=== PATIENT | female | born 1980 | race African-American/Black ===

== ENCOUNTER → 2017-01-23 | Outpatient (CLI) | payer MEDICARE ==
[~2017-01-23] MED LIST: BENTYL 20MG20 MG/TAB PO; CEPHALEXIN500 M1 PO; FROVA PO; HYDROCODONE/APAP; LAMICTAL 25MG T25 MG PO; LOMOTIL 0.025 M1 TAB PO; NO HOME MEDICATIONS; NORCO 325 MG-51 TAB PO; PERCOCET 325 MG1 TA2 PO; PHENERGAN 25 TA25 MG PO; PHENTERMINE15 MG PO; TEGRETOL100 MG PO; ZOLOFT25 MG PO
== END ==
LOC: BHSO 13:51
DX: F31.74 Bipolar disorder, in full remission, most recent episode manic (principal)

== ENCOUNTER → 2017-10-09 | Outpatient (CLI) | payer MEDICARE | LOC: BHSO 10:39 | DX: F31.73 Bipolar disorder, in partial remission, most recent episode manic (principal) | CPT/HCPCS: G0463 ==

== ENCOUNTER → 2017-11-28 | Outpatient (CLI) | payer MEDICARE | LOC: BHSO 14:20 | DX: F31.73 Bipolar disorder, in partial remission, most recent episode manic (principal) | CPT/HCPCS: G0463 ==

== ENCOUNTER → 2018-02-26 | Outpatient (CLI) | payer MEDICARE | LOC: BHSO 10:42 | DX: F31.31 Bipolar disorder, current episode depressed, mild (principal) | CPT/HCPCS: G0463 ==

== ENCOUNTER → 2018-04-13 | Outpatient (CLI) | payer MEDICARE | LOC: BHSO 09:32 | DX: F31.31 Bipolar disorder, current episode depressed, mild (principal) ==

== ENCOUNTER → 2018-09-08 | Outpatient (CLI) | payer MEDICARE ==
[~2018-09-08] VITALS: Ht 165.1 cm; Wt 82.0 kg
[2018-09-08 07:38] VITALS: BP 127/80; PULSE 92
[2018-09-08 08:20] VITALS: BP 118/84; PULSE 82
== END ==
LOC: COL.RAD 07:00
DX: M51.26 Other intervertebral disc displacement, lumbar region (principal)
CPT/HCPCS: J3301

== ENCOUNTER → 2018-09-24 | Outpatient (CLI) | payer MEDICARE ==
[~2018-09-24] VITALS: Ht 165.1 cm; Wt 80.2 kg
[~2018-09-24] MED LIST changes: +MULTI VITAMINS1 TAB PO
[2018-09-24 09:22] VITALS: BP 138/80; PULSE 89
[2018-09-24 09:55] VITALS: BP 124/65; PULSE 81
== END ==
LOC: COL.RAD 09:00
DX: M51.26 Other intervertebral disc displacement, lumbar region (principal)
CPT/HCPCS: J3301

== ENCOUNTER → 2018-11-17 | Outpatient (CLI) | payer MEDICARE | LOC: BHSO 14:35 | DX: F31.75 Bipolar disorder, in partial remission, most recent episode depressed (principal) | CPT/HCPCS: G0463 ==

== ENCOUNTER → 2019-01-12 | Outpatient (CLI) | payer MEDICARE | LOC: BHSO 14:00 | DX: F31.77 Bipolar disorder, in partial remission, most recent episode mixed (principal) | CPT/HCPCS: G0463 ==

== ENCOUNTER 2019-02-24 11:29 | Emergency (ER) | payer MEDICARE ==
[~2019-02-24] VITALS: Ht 165.1 cm; Wt 76.4 kg
[2019-02-24 11:43] VITALS: TEMP 98.6
[2019-02-24 12:22] LABS: BASO % 0.5 % (0.0-2.0); EOS % 0.6 % (0-4.0); GRAN # 4.4 (1.4-6.5); GRAN % 67.7 % (42.2-75.2); HEMATOCRIT 41.7 % (37.0-47.0); HEMOGLOBIN 13.3 g/dl (12.5-16.0); LYMPH # 1.5 (1.2-3.4); LYMPH % 23.3 % (20.0-51.0); MEAN CELL VOLUME 92 fl (80.0-100.0); MEAN CORPUSCULAR HEMOGLOBIN 29 pg (27.0-31.0); MEAN CORPUSCULAR HGB CONC 32 g/dl (33.0-37.0); MEAN PLATELET VOLUME 9.7 fl (7.4-10.4); MONO # 0.5 (0.1-0.6); MONO % 7.6 % (1.7-9.3); PLATELET COUNT 293 K/mm3 (130-400); RED BLOOD COUNT 4.53 M/mm3 (4.10-5.30); REDCELL DISTRIBUTION WIDTH-CV 13.2 % (11.5-14.5)
[2019-02-24 12:25] LABS: ALANINE AMINOTRANSFERASE < 6 U/L (9-52); ALBUMIN 4.4 gm/dL (3.5-5.0); ALKALINE PHOSPHATASE 42 U/L (50-136); ANION GAP 12 mmol/L (7-16); AST,SGOT 40 U/L (15-37); BILIRUBIN,TOTAL 0.6 mg/dL (0.0-1.0); BLOOD UREA NITROGEN 16 mg/dL (7-17); CALCIUM 9.7 mg/dL (8.4-10.2); CARBON DIOXIDE 22 mmol/L (22-30); CHLORIDE 106 mmol/L (98-107); CREATININE, serum 0.87 (0.52-1.25); GLUCOSE 96 mg/dL (74-106); LIPASE 103 U/L (23-300); POTASSIUM 3.9 mmol/L (3.4-5.0); SODIUM 140 mmol/L (137-145); TOTAL PROTEIN 7.6 gm/dL (6.4-8.2)
[2019-02-24 15:02] LABS: COLLECTION METHOD CLEAN CATCH
[2019-02-24] MEDS ORDERED: PROTONIX 40MG T40 MG PO (15:14)
[2019-02-24] MEDS ORDERED: ZOFRAN 4MG T4 MG/TAB PO (15:18)
[2019-02-24 15:21] LABS: MUCOUS Present /lpf; PH 5 (5-8); SQUAMOUS EPITHELIAL 0-2 /hpf; URINE APPEARANCE Clear; URINE BACTERIA None Seen /hpf; URINE BILIRUBIN Negative (NEGATIVE); URINE BLOOD Negative (NEGATIVE); URINE COLOR Yellow; URINE GLUCOSE Negative (NEGATIVE); URINE KETONE Negative (NEGATIVE); URINE LEUKOCYTE ESTERASE Negative (NEGATIVE); URINE NITRATE Negative (NEGATIVE); URINE PROTEIN(semi-quant) Negative (NEGATIVE); URINE RBC 0-2 /hpf; URINE UROBILINOGEN Negative (NEGATIVE); URINE WBC 0-2 /hpf
[2019-02-24 15:40] VITALS: BP 121/65; PULSE 82
== END 2019-02-24 15:41 | disposition home or self-care (01) ==
LOC: COL.ER 11:29
PROVIDERS: Nurse Practitioner Primary Care
DX: K29.70 Gastritis, unspecified, without bleeding (principal); F17.210 Nicotine dependence, cigarettes, uncomplicated; Z90.710 Acquired absence of both cervix and uterus; Z90.49 Acquired absence of other specified parts of digestive tract; Z88.6 Allergy status to analgesic agent
CPT/HCPCS: C9113; J1200; J1885; J2270; J2405; J7030; Q9967

== ENCOUNTER → 2019-04-14 | Outpatient (CLI) | payer MEDICARE ==
[~2019-04-14] MED LIST changes: +PROTONIX 40MG T40 MG PO; +ZOFRAN 4MG T4 MG/TAB PO
== END ==
LOC: BHSO 13:15
DX: F31.76 Bipolar disorder, in full remission, most recent episode depressed (principal)
CPT/HCPCS: G0463

== ENCOUNTER → 2019-04-27 | Outpatient (CLI) | payer MEDICARE | LOC: MHCPAIN 08:21 | DX: G89.29 Other chronic pain (principal); M47.817 Spondylosis without myelopathy or radiculopathy, lumbosacral region; M53.3 Sacrococcygeal disorders, not elsewhere classified | CPT/HCPCS: G0463 ==

== ENCOUNTER → 2019-05-03 | Outpatient (CLI) | payer MEDICARE | LOC: MHCPAIN 14:27 | DX: M47.817 Spondylosis without myelopathy or radiculopathy, lumbosacral region (principal); M54.16 Radiculopathy, lumbar region ==

== ENCOUNTER → 2019-05-12 | Outpatient (CLI) | payer MEDICARE | LOC: MHCPAIN 09:08 | DX: G89.29 Other chronic pain (principal); M47.817 Spondylosis without myelopathy or radiculopathy, lumbosacral region; M53.3 Sacrococcygeal disorders, not elsewhere classified; M47.814 Spondylosis without myelopathy or radiculopathy, thoracic region | CPT/HCPCS: G0463 ==

== ENCOUNTER → 2019-05-20 | Outpatient (CLI) | payer MEDICARE | LOC: MHCPAIN 08:50 | DX: M47.817 Spondylosis without myelopathy or radiculopathy, lumbosacral region (principal); M54.16 Radiculopathy, lumbar region ==

== ENCOUNTER → 2019-09-28 | Outpatient (CLI) | payer MEDICARE ==
[~2019-09-28] MED LIST changes: +KLONOPIN 0.5MG0.5 MG PO; +LAMICTAL 100MG100 MG PO
== END ==
LOC: BHSO 10:13
DX: F31.76 Bipolar disorder, in full remission, most recent episode depressed (principal)
CPT/HCPCS: G0463

== ENCOUNTER 2019-10-26 14:56 | Emergency (ER) | payer MEDICARE ==
[~2019-10-26] VITALS: Ht 165.1 cm; Wt 76.8 kg
[~2019-10-26 14:56] MED LIST changes: -KLONOPIN 0.5MG0.5 MG PO; -LAMICTAL 100MG100 MG PO
[2019-10-26 15:05] VITALS: TEMP 98.2
[2019-10-26 16:02] LABS: BASO % 0.5 % (0.0-2.0); EOS # 0.1 (0.0-0.7); EOS % 0.8 % (0-4.0); GRAN # 5.1 (1.4-6.5); GRAN % 66.4 % (42.2-75.2); HEMATOCRIT 38.7 % (37.0-47.0); HEMOGLOBIN 12.3 g/dl (12.5-16.0); LYMPH # 1.9 (1.2-3.4); LYMPH % 24.8 % (20.0-51.0); MEAN CELL VOLUME 92 fl (80.0-100.0); MEAN CORPUSCULAR HEMOGLOBIN 29 pg (27.0-31.0); MEAN CORPUSCULAR HGB CONC 32 g/dl (33.0-37.0); MEAN PLATELET VOLUME 9.2 fl (7.4-10.4); MONO # 0.6 (0.1-0.6); MONO % 7.4 % (1.7-9.3); PLATELET COUNT 294 K/mm3 (130-400); REDCELL DISTRIBUTION WIDTH-CV 12.9 % (11.5-14.5)
[2019-10-26 16:19] LABS: ALANINE AMINOTRANSFERASE 18 U/L (9-52); ALBUMIN 4.5 gm/dL (3.5-5.0); ALKALINE PHOSPHATASE 45 U/L (50-136); ANION GAP 8 mmol/L (7-16); AST,SGOT 24 U/L (15-37); BILIRUBIN,TOTAL 0.4 mg/dL (0.0-1.0); BLOOD UREA NITROGEN 14 mg/dL (7-17); CARBON DIOXIDE 22 mmol/L (22-30); CHLORIDE 108 mmol/L (98-107); GLUCOSE 92 mg/dL (74-106); POTASSIUM 4.1 mmol/L (3.4-5.0); SODIUM 138 mmol/L (137-145); TOTAL PROTEIN 7.3 gm/dL (6.4-8.2)
[2019-10-26 16:20] LABS: C-REACTIVE PROTEIN < 0.5 mg/dL (0.0-0.9)
[2019-10-26] MEDS ORDERED: KLONOPIN 0.5MG0.5 MG PO (16:23)
[2019-10-26] MEDS ORDERED: LAMICTAL 100MG100 MG PO (16:24)
[2019-10-26 16:26] LABS: TROPONIN-I < 0.012 ng/mL (0.000-0.035)
[2019-10-26 16:57] LABS: COLLECTION METHOD CLEAN CATCH
[2019-10-26 17:03] LABS: MUCOUS Present /lpf; PH 5 (5-8); SQUAMOUS EPITHELIAL 0-2 /hpf; URINE APPEARANCE Clear; URINE BACTERIA None Seen /hpf; URINE BILIRUBIN Negative (NEGATIVE); URINE BLOOD Negative (NEGATIVE); URINE COLOR Straw; URINE GLUCOSE Negative (NEGATIVE); URINE KETONE Trace (NEGATIVE); URINE LEUKOCYTE ESTERASE Negative (NEGATIVE); URINE NITRATE Negative (NEGATIVE); URINE PROTEIN(semi-quant) Negative (NEGATIVE); URINE RBC 0-2 /hpf; URINE UROBILINOGEN Negative (NEGATIVE); URINE WBC 0-2 /hpf
[2019-10-26 18:12] VITALS: BP 129/89; PULSE 87
== END 2019-10-26 18:14 | disposition home or self-care (01) ==
LOC: COL.ER 14:56
PROVIDERS: Emergency Medicine
DX: G43.909 Migraine, unspecified, not intractable, without status migrainosus (principal); R00.2 Palpitations; Z90.710 Acquired absence of both cervix and uterus
CPT/HCPCS: J2405; J3010; J7030

== ENCOUNTER → 2020-02-09 | Outpatient (CLI) | payer MEDICARE ==
[~2020-02-09] MED LIST changes: +KLONOPIN 0.5MG0.5 MG PO; +LAMICTAL 100MG100 MG PO
== END ==
LOC: COL.RAD 11:57
DX: M51.27 Other intervertebral disc displacement, lumbosacral region (principal); M51.26 Other intervertebral disc displacement, lumbar region; Q67.5 Congenital deformity of spine

== ENCOUNTER 2020-02-18 18:03 | Emergency (ER) | payer MEDICARE ==
[~2020-02-18] VITALS: Ht 165.1 cm; Wt 79.5 kg
[2020-02-18 18:05] VITALS: TEMP 99.2
[2020-02-18 22:00] VITALS: BP 120/68; PULSE 98
== END 2020-02-18 22:00 | disposition home or self-care (01) ==
LOC: COL.ER 18:03
DX: J70.5 Respiratory conditions due to smoke inhalation (principal); F41.9 Anxiety disorder, unspecified; F17.290 Nicotine dependence, other tobacco product, uncomplicated; Y26.XXXA Exposure to smoke, fire and flames, undetermined intent, initial encounter; Y92.009 Unspecified place in unspecified non-institutional (private) residence as the place of occurrence of the external cause
CPT/HCPCS: J2060; J2405; J7030

== ENCOUNTER 2020-03-25 09:50 | Inpatient (IN) | payer MEDICARE ==
[~2020-03-25] VITALS: Ht 165.1 cm; Wt 84.7 kg
[2020-03-25 11:06] LABS: COLLECTION METHOD CLEAN CATCH
[2020-03-25 11:12] LABS: BASO % 0.2 % (0.0-2.0); EOS % 0.5 % (0-4.0); GRAN # 6.1 (1.4-6.5); HEMATOCRIT 41.1 % (37.0-47.0); HEMOGLOBIN 13.2 g/dl (12.5-16.0); LYMPH # 1.5 (1.2-3.4); MEAN CELL VOLUME 90 fl (80.0-100.0); MEAN CORPUSCULAR HEMOGLOBIN 29 pg (27.0-31.0); MEAN CORPUSCULAR HGB CONC 32 g/dl (33.0-37.0); MEAN PLATELET VOLUME 9.6 fl (7.4-10.4); MONO # 0.7 (0.1-0.6); MONO % 8.1 % (1.7-9.3); PLATELET COUNT 313 K/mm3 (130-400); RED BLOOD COUNT 4.57 M/mm3 (4.10-5.30); REDCELL DISTRIBUTION WIDTH-CV 13.5 % (11.5-14.5)
[2020-03-25 11:15] LABS: MUCOUS Present /lpf; PH 6 (5-8); URINE APPEARANCE Hazy; URINE BACTERIA None Seen /hpf; URINE BILIRUBIN Negative (NEGATIVE); URINE BLOOD Negative (NEGATIVE); URINE COLOR Yellow; URINE GLUCOSE Negative (NEGATIVE); URINE KETONE 1+ (NEGATIVE); URINE LEUKOCYTE ESTERASE Negative (NEGATIVE); URINE NITRATE Negative (NEGATIVE); URINE PROTEIN(semi-quant) Negative (NEGATIVE); URINE RBC 0-2 /hpf
[2020-03-25 11:16] LABS: PROTHROMBIN TIME 11.5 SECONDS (9.7-12.8)
[2020-03-25 11:26] LABS: MONOSCREEN NEGATIVE
[2020-03-25 11:29] LABS: ALANINE AMINOTRANSFERASE 14 U/L (4-34); ALBUMIN 4.5 gm/dL (3.5-5.0); ALKALINE PHOSPHATASE 53 U/L (50-136); ANION GAP 10 mmol/L (7-16); AST,SGOT 23 U/L (15-37); BILIRUBIN,TOTAL 0.8 mg/dL (0.0-1.0); BLOOD UREA NITROGEN 15 mg/dL (7-17); C-REACTIVE PROTEIN < 0.5 mg/dL (0.0-0.9); CALCIUM 9.3 mg/dL (8.4-10.2); CARBON DIOXIDE 18 mmol/L (22-30); CHLORIDE 109 mmol/L (98-107); CREATININE, serum 0.76 (0.52-1.25); GLUCOSE 102 mg/dL (74-106); SODIUM 137 mmol/L (137-145); TOTAL PROTEIN 7.7 gm/dL (6.4-8.2)
[2020-03-25] MEDS ORDERED: MAXALT MLT10 MG/TAB PO (14:09)
[2020-03-25] MEDS ORDERED: NEURONTIN300 MG/CAP PO (14:09)
[2020-03-25 14:11] LABS: GLUCOSE,CSF 55 mg/dL (40-70); TOTAL PROTEIN,CSF 21 mg/dL (15-45)
--- NOTE | 2020-03-25 15:30 | NUR ---
Patient to room 317 by wheelchair from ER. Patient A&Ox4, reporting pain in head and neck 05/29. No pain medication requested. Oriented patient to room, bed and call light. Assessment complete. VSS. IV CDI. Patient instructed to call nursing staff for assistance with ambulation. Call light within reach
[2020-03-25 15:44] LABS: CSF APPEARANCE CLEAR; CSF COLOR COLORLESS
[2020-03-25 15:45] LABS: CSF RBC 1 /mm3 (0-0)
[2020-03-25 15:46] LABS: CSF APPEARANCE CLEAR; CSF COLOR COLORLESS; CSF RBC 0 /mm3 (0-0)
[2020-03-25 16:15] LABS: CSF MONONUCLEAR 100 % (70-100); CSF POLYMORPHONUCLEAR 0 % (0-6)
[2020-03-25 16:22] LABS: CSF MONONUCLEAR 0 % (70-100); CSF POLYMORPHONUCLEAR 0 % (0-6)
[2020-03-25 17:16] VITALS: BP 131/85; PULSE 90; TEMP 98.1
--- NOTE | 2020-03-25 18:22 | NUR ---
Patient resting in bed since being admitted to the floor. A&Ox3. Reporting pain in head and neck, did not request pain medication. VSS. IV CDI, fluids infusing. Patient instructed to call nursing staff for assistance with ambulation. No further needs expressed from patient
[2020-03-25 19:37] VITALS: BP 129/72; PULSE 74; TEMP 98.6
--- NOTE | 2020-03-25 21:00 | NUR ---
Initial shift assessment done- states headache/neck pain 06/29, lying still with lights off, will give Toradol IV as ordered-- IV fluids of NS at 125cc/hr- no other requests, just wants to try to sleep-
[2020-03-26] VITALS (7 sets, daily range): BP systolic 107–126; BP diastolic 63–70; PULSE 78–104; TEMP 98.2–99.3
--- NOTE | 2020-03-26 05:15 | NUR ---
Has been sleeping most of the night-- did get Toradol IV x2 this shift for headache 06/29- also having the neck pain/stiffness,, did give a Zanaflex this morning to see if that will help with neck muscle pain-- pt does say that she is feeling better than yesterday, IV fluids of NS at 125cc/hr- pt voiding good amounts
--- NOTE | 2020-03-26 09:30 | NUR ---
Patient sitting up in bed waiting on breakfast. A&Ox4. Reporting pain in head and neck 05/29. Pain medication requested and given. IV CDI, fluids infusing. No further needs expressed from patient. Patient instructed to call nursing staff for assistance with ambulation. Call light within reach
--- NOTE | 2020-03-26 18:07 | NUR ---
Patient sitting up in bed eatting dinner, son at the bedside. VSS. A&Ox3. Reporting pain and discomfort in neck. Warm pack requested. IV CDI, fluids infusing. No further needs expressed from patient. Call light within reach
--- NOTE | 2020-03-26 18:40 | NUR ---
Pt REPORT RECEIVED FROM TRA RN AT BEDSIDE. Pt IS RESTING IN BED WITH EYES CLOSED AND CALL LIGHT WITHIN REACH. WILL CONTINUE TO MONITOR.
--- NOTE | 2020-03-27 01:06 | NUR ---
Pt is currently resting in bed peacefully with no s/s of distress noted and call light within reach. Pt has no no s/s of seizure activty and no reports of seizuire activity to this writer producer by the Pt or staff. Pt has remainined in bed watching tv and using her electronic devices to entertain herself when she is awake. Pt is A&Ox4 and can make her needs and wants known easily. Pt ambulates to the restroom independantly and does not require assistance with clothing or toileting hygiene. Pt has been cooperative with care and compliant with medication regimen. IV infusin NS without comlications or adverse IV reactions noted. At midnight Pt became NPO for procedures and fasting labs in the AM. Will continue to monitor.
[2020-03-27 03:37] VITALS: BP 132/81; PULSE 73; TEMP 98.2
--- NOTE | 2020-03-27 06:26 | NUR ---
Pt resting in bed peacefully with call light within reach. No s/s of distress noted. Will give bedside report to dayshift nurse.
[2020-03-27 07:12] LABS: BASO % 0.2 % (0.0-2.0); EOS % 0.1 % (0-4.0); GRAN # 9.8 (1.4-6.5); GRAN % 84.1 % (42.2-75.2); HEMATOCRIT 37.7 % (37.0-47.0); HEMOGLOBIN 11.7 g/dl (12.5-16.0); LYMPH # 1.2 (1.2-3.4); LYMPH % 10.5 % (20.0-51.0); MEAN CORPUSCULAR HEMOGLOBIN 29 pg (27.0-31.0); MEAN CORPUSCULAR HGB CONC 31 g/dl (33.0-37.0); MEAN PLATELET VOLUME 9.8 fl (7.4-10.4); MONO # 0.6 (0.1-0.6); MONO % 4.7 % (1.7-9.3); PLATELET COUNT 291 K/mm3 (130-400); RED BLOOD COUNT 3.99 M/mm3 (4.10-5.30); REDCELL DISTRIBUTION WIDTH-CV 13.6 % (11.5-14.5)
[2020-03-27 07:28] LABS: CALCIUM 8.9 mg/dL (8.4-10.2); CREATININE, serum 0.66 (0.52-1.25); MAGNESIUM 2.3 mg/dL (1.6-2.3); POTASSIUM 3.8 mmol/L (3.4-5.0)
[2020-03-27 07:32] VITALS: BP 126/75; PULSE 64; TEMP 98.7
[2020-03-27 07:33] LABS: MEAN CELL VOLUME 95 fl (80.0-100.0)
--- NOTE | 2020-03-27 08:19 | NUR ---
PER [employer]ING ASSEMBLER MRI NOT SCHEDULED UNTIL AFTER 1400 03/27. OKAY TO LET PATIENT EAT BREAKFAST. SCOTT ESPINOSA WITH DR ROMERO NOTIFIED OF MRI SCHEDULE. OKAY FOR PATIENT TO EAT BREAKFAST AT THIS TIME. WILL MAKE NPO AFTER 1000AM 03/27.
[2020-03-27 11:45] VITALS: BP 117/67; PULSE 100; TEMP 98.5
--- NOTE | 2020-03-27 11:55 | NUR ---
ZARA met with the patient and the patient's son to complete inital intake. The patient lives in [place] with her grandfather, aunt and two children. The patient denies DME use and is independent with ADLs. The patient's PCP is Dr. King and patient receives medications from [facility] with some difficulty at times paying for them and was concerned about affording any new medicaitons. SW informed pharmacist, he will look into it. The patient does not have advanced directives in the EMR but was interested in DPOA-HC form. Form provided. The patient plans to return home at discharge with her son providing transportation. SW will continue to follow to ensure a safe discharge.
--- NOTE | 2020-03-27 12:12 | NUR ---
First visit from the emerging technologies director. No needs right now.
[2020-03-27 16:27] VITALS: BP 128/72; PULSE 75; TEMP 98.7
[2020-03-27] MEDS ORDERED: NATURE'S BLEND100 M1 PO (17:33)
[2020-03-27] MEDS ORDERED: THE MEDICINE S200 M2 PO (17:34)
[2020-03-27] MEDS ORDERED: MAGNESIUM GLUC500 MG PO (17:34)
[2020-03-27] MEDS ORDERED: IMITREX 6M6 MG/0.5 M SQ (17:35)
[2020-03-27] MEDS ORDERED: DEPAKOTE ER 50500 MG PO (17:36)
[2020-03-27] MEDS ORDERED: ZOFRAN 4MG T4 MG/TAB PO (17:37)
[2020-03-27] MEDS ORDERED: VOLTAREN 50MG T50 MG PO (17:37)
[2020-03-27] MEDS ORDERED: NORCO 325 MG-7.1 TAB PO (17:38)
[2020-03-27] MEDS ORDERED: MEDROL 4MG DOSPA4 MG PO (17:38)
--- NOTE | 2020-03-27 18:45 | NUR ---
PATIENT DC TO HOME ACCOMPANIED BY [facility] [employer]. AT TIME OF DC PATIENT A/O X 4. ATTITUDE CALM AND PLEASANT. CONTINUES WITH HEADACHE. PRINTED DC INSTRUCTIONS REVIEWED WITH PATIENT. ACKNOWLEDGED NEW PRESCRIPTIONS AND NEEDING TO GET THEM FILLED. ALL QUESTIONS AND CONCERNS ADDRESSED DURING REVIEW. VOICE APPRECIATION OF CARE PROVIDED. LEFT UNIT AMBULATORY PER REQUEST ACCOMPANIED BY PCT.
[2020-03-28 05:49] LABS: FOLATE (FOLIC ACID) 6.3 ng/mL (>=4.0)
== END 2020-03-27 18:30 | disposition home or self-care (01) | DRG 552 ==
LOC: COL.ER 09:50 → MEDICAL 13:59
PROVIDERS: Emergency Medicine; Physician Assistant; Psychiatry & Neurology Neurology; ADMIT Internal Medicine
DX: M48.02 Spinal stenosis, cervical region (principal); G43.909 Migraine, unspecified, not intractable, without status migrainosus; F41.9 Anxiety disorder, unspecified; F32.9 Major depressive disorder, single episode, unspecified; D72.829 Elevated white blood cell count, unspecified; Z90.49 Acquired absence of other specified parts of digestive tract; Z90.89 Acquired absence of other organs; Z87.891 Personal history of nicotine dependence; Z90.710 Acquired absence of both cervix and uterus
CPT/HCPCS: OP; 99232-AI; 99239; A9585; C9113; G0378; J0780; J1170; J1200; J1885; J2060; J2930; J3030; J7030; Q9967

== ENCOUNTER → 2020-03-28 | Outpatient (CLI) | payer MEDICARE ==
[~2020-03-28] VITALS: Ht 165.1 cm; Wt 86.2 kg
[~2020-03-28] MED LIST changes: +DEPAKOTE ER 50500 MG PO; +IMITREX 6M6 MG/0.5 M SQ; +MAGNESIUM GLUC500 MG PO; +MAXALT MLT10 MG/TAB PO; +MEDROL 4MG DOSPA4 MG PO; +NATURE'S BLEND100 M1 PO; +NEURONTIN300 MG/CAP PO; +NORCO 325 MG-7.1 TAB PO; +THE MEDICINE S200 M2 PO; +VOLTAREN 50MG T50 MG PO
[2020-03-28 07:05] VITALS: BP 142/94; PULSE 88
[2020-03-28 07:53] VITALS: BP 130/91; PULSE 78
== END ==
LOC: COL.RAD 06:30
DX: M50.222 Other cervical disc displacement at C5-C6 level (principal)
CPT/HCPCS: J1100

== ENCOUNTER → 2020-05-29 | Outpatient (CLI) | payer MEDICARE | LOC: COL.RAD 16:40 | DX: M51.36 Other intervertebral disc degeneration, lumbar region (principal); M47.816 Spondylosis without myelopathy or radiculopathy, lumbar region ==

== ENCOUNTER 2020-06-09 09:00 | Outpatient (RCR) | payer MEDICARE | END 2020-07-14 11:21 | disposition home or self-care (01) | LOC: WSC 09:00 | DX: M51.26 Other intervertebral disc displacement, lumbar region (principal); M51.27 Other intervertebral disc displacement, lumbosacral region; M46.86 Other specified inflammatory spondylopathies, lumbar region; M25.80 Other specified joint disorders, unspecified joint; M41.86 Other forms of scoliosis, lumbar region; G89.29 Other chronic pain ==

== ENCOUNTER 2021-02-12 23:23 | Emergency (ER) | payer MEDICARE ==
[~2021-02-12] VITALS: Ht 165.1 cm; Wt 79.5 kg
[2021-02-12 23:29] VITALS: TEMP 98.5
[2021-02-13 00:14] LABS: BASO % 0.5 % (0.0-2.0); EOS # 0.1 (0.0-0.7); EOS % 1.3 % (0-4.0); GRAN # 3.6 (1.4-6.5); GRAN % 57.5 % (42.2-75.2); HEMOGLOBIN 11.4 g/dl (12.5-16.0); LYMPH # 1.8 (1.2-3.4); LYMPH % 29.8 % (20.0-51.0); MEAN CELL VOLUME 91 fl (80.0-100.0); MEAN CORPUSCULAR HEMOGLOBIN 30 pg (27.0-31.0); MEAN CORPUSCULAR HGB CONC 33 g/dl (33.0-37.0); MEAN PLATELET VOLUME 9.4 fl (7.4-10.4); MONO # 0.6 (0.1-0.6); MONO % 10.4 % (1.7-9.3); PLATELET COUNT 301 K/mm3 (130-400); RED BLOOD COUNT 3.84 M/mm3 (4.10-5.30); REDCELL DISTRIBUTION WIDTH-CV 14.2 % (11.5-14.5)
[2021-02-13 00:15] LABS: HEMATOCRIT 35.1 % (37.0-47.0)
[2021-02-13 00:25] LABS: ALBUMIN 3.5 gm/dL (3.5-5.0); BILIRUBIN,TOTAL 0.2 mg/dL (0.0-1.0); CALCIUM 8.1 mg/dL (8.4-10.2); CREATININE, serum 0.72 (0.52-1.25); POTASSIUM 3.8 mmol/L (3.4-5.0); TOTAL PROTEIN 6.1 gm/dL (6.4-8.2)
[2021-02-13 01:48] VITALS: BP 116/78; PULSE 67
== END 2021-02-13 01:58 | disposition home or self-care (01) ==
LOC: COL.ER 23:23
PROVIDERS: Emergency Medicine
DX: G43.909 Migraine, unspecified, not intractable, without status migrainosus (principal); F41.9 Anxiety disorder, unspecified; F32.9 Major depressive disorder, single episode, unspecified; Z90.710 Acquired absence of both cervix and uterus; Z90.49 Acquired absence of other specified parts of digestive tract; Z88.6 Allergy status to analgesic agent; Z79.899 Other long term (current) drug therapy
CPT/HCPCS: J1200; J2060; J2765; J7030

== ENCOUNTER → 2021-02-28 | Outpatient (CLI) | payer MEDICARE | LOC: COL.RAD 10:57 | DX: G43.019 Migraine without aura, intractable, without status migrainosus (principal) | CPT/HCPCS: Q9967 ==

== ENCOUNTER 2021-05-25 14:36 | Emergency (ER) | payer MEDICARE ==
[~2021-05-25] VITALS: Ht 165.1 cm; Wt 81.8 kg
[2021-05-25 14:43] VITALS: TEMP 99.1
[2021-05-25 16:55] LABS: BASO % 0.2 % (0.0-2.0); EOS # 0.1 (0.0-0.7); EOS % 1.1 % (0-4.0); GRAN # 5.4 (1.4-6.5); GRAN % 66.8 % (42.2-75.2); HEMATOCRIT 39.7 % (37.0-47.0); HEMOGLOBIN 12.3 g/dl (12.5-16.0); LYMPH # 1.7 (1.2-3.4); LYMPH % 21.3 % (20.0-51.0); MEAN CELL VOLUME 95 fl (80.0-100.0); MEAN CORPUSCULAR HEMOGLOBIN 29 pg (27.0-31.0); MEAN CORPUSCULAR HGB CONC 31 g/dl (33.0-37.0); MEAN PLATELET VOLUME 9.9 fl (7.4-10.4); MONO # 0.8 (0.1-0.6); MONO % 10.2 % (1.7-9.3); PLATELET COUNT 279 K/mm3 (130-400); RED BLOOD COUNT 4.19 M/mm3 (4.10-5.30); REDCELL DISTRIBUTION WIDTH-CV 14.5 % (11.5-14.5)
[2021-05-25 17:04] LABS: BILIRUBIN,TOTAL 0.2 mg/dL (0.0-1.0); CALCIUM 8.9 mg/dL (8.4-10.2); CREATININE, serum 0.81 (0.52-1.25); POTASSIUM 4.3 mmol/L (3.4-5.0); TOTAL PROTEIN 6.7 gm/dL (6.4-8.2)
[2021-05-25] MEDS ORDERED: PERCOCET 325 MG1 TA2 PO (18:01)
[2021-05-25 18:20] VITALS: BP 120/68; PULSE 73
== END 2021-05-25 18:30 | disposition home or self-care (01) ==
LOC: COL.ER 14:36
PROVIDERS: Personal Emergency Response Attendant
DX: R10.31 Right lower quadrant pain (principal); R10.32 Left lower quadrant pain; F41.9 Anxiety disorder, unspecified; F32.9 Major depressive disorder, single episode, unspecified; Z90.49 Acquired absence of other specified parts of digestive tract; Z32.02 Encounter for pregnancy test, result negative; Z79.899 Other long term (current) drug therapy
CPT/HCPCS: J2270; J2405; J7030; Q9967

== ENCOUNTER 2021-12-07 20:29 | Emergency (ER) | payer OTHER, MEDICARE ==
[~2021-12-07] VITALS: Ht 162.6 cm; Wt 68.2 kg
[2021-12-07 23:34] VITALS: BP 123/94; PULSE 92; TEMP 97.6
== END 2021-12-07 23:34 | disposition home or self-care (01) ==
LOC: COL.ER 20:29
DX: S40.011A Contusion of right shoulder, initial encounter (principal); S70.01XA Contusion of right hip, initial encounter; F32.A Depression, unspecified; F41.9 Anxiety disorder, unspecified; F17.210 Nicotine dependence, cigarettes, uncomplicated; Z79.899 Other long term (current) drug therapy; V49.50XA Passenger injured in collision with unspecified motor vehicles in traffic accident, initial encounter
CPT/HCPCS: Q9967

== ENCOUNTER → 2022-01-22 | Outpatient (CLI) | payer MEDICARE | LOC: MHCPAIN 12:59 | DX: M47.817 Spondylosis without myelopathy or radiculopathy, lumbosacral region (principal); M53.3 Sacrococcygeal disorders, not elsewhere classified; M54.16 Radiculopathy, lumbar region | CPT/HCPCS: G0463 ==

== ENCOUNTER → 2022-02-07 | Outpatient (CLI) | payer MEDICARE | LOC: MHCPAIN 12:37 | DX: M47.817 Spondylosis without myelopathy or radiculopathy, lumbosacral region (principal); M53.3 Sacrococcygeal disorders, not elsewhere classified; M54.16 Radiculopathy, lumbar region | CPT/HCPCS: J1100; Q9967 ==

== ENCOUNTER → 2022-02-26 | Outpatient (CLI) | payer MEDICARE | LOC: MHCPAIN 08:14 | DX: M53.3 Sacrococcygeal disorders, not elsewhere classified (principal); M54.50 Low back pain, unspecified; M46.96 Unspecified inflammatory spondylopathy, lumbar region | CPT/HCPCS: G0463 ==

== ENCOUNTER → 2022-02-28 | Outpatient (CLI) | payer MEDICARE | LOC: MHCPAIN 08:57 | DX: M47.817 Spondylosis without myelopathy or radiculopathy, lumbosacral region (principal); M53.3 Sacrococcygeal disorders, not elsewhere classified | CPT/HCPCS: G0260; J1040; Q9967 ==

== ENCOUNTER → 2022-04-02 | Outpatient (CLI) | payer MEDICARE | LOC: MHCPAIN 09:01 | DX: M47.816 Spondylosis without myelopathy or radiculopathy, lumbar region (principal); M54.50 Low back pain, unspecified; M53.3 Sacrococcygeal disorders, not elsewhere classified | CPT/HCPCS: G0463 ==

== ENCOUNTER → 2023-02-06 | Outpatient (CLI) | payer BC, MEDICARE | LOC: MC.RAD 10:50 | DX: N63.20 Unspecified lump in the left breast, unspecified quadrant (principal) ==

== ENCOUNTER → 2024-07-16 | Outpatient (CLI) | payer MEDICARE, BC | LOC: MC.RAD 11:29 | DX: Z12.31 Encounter for screening mammogram for malignant neoplasm of breast (principal) ==